=== PATIENT | female | born 2000 | race Caucasian/White ===

== ENCOUNTER 2022-03-08 19:40 | Emergency (ER) | payer OTHER ==
[2022-03-08] MEDS ORDERED: Ondansetron PF 4 MG/2 ML Vial ONE (20:51)
== END 2022-03-08 21:50 | disposition home or self-care (01) ==
LOC: CSHERS 19:40
DX: R42 Dizziness and giddiness (principal); R11.0 Nausea
CPT/HCPCS: 93005; 96374; J2405